=== PATIENT | male | born 1955 | race Caucasian/White ===

== ENCOUNTER → 2018-05-14 | Outpatient (CLI) | payer BC | LOC: M WUC 16:24 | DX: I10 Essential (primary) hypertension (principal); I45.19 Other right bundle-branch block | CPT/HCPCS: 71046 ==

== ENCOUNTER → 2018-05-15 | Outpatient (CLI) | payer BC ==
[2018-05-15 17:07] LABS: BASO % 0.4 % (0.0-1.0); EOS # 0.1 10^3/uL (0.0-0.50); EOS % 1.4 % (0.0-3.0); HEMATOCRIT 47.8 % (42.0-52.0); HEMOGLOBIN 15.9 g/dl (13.5-17.5); IMMATURE GRANULOCYTE % 0.3 % (0-3.0); LYMPH # 1.9 10^3/uL (1.5-4.5); LYMPH % 26.3 % (24.0-44.0); MEAN CORPUSCULAR HEMOGLOBIN 30.8 pg (27.0-33.0); MEAN CORPUSCULAR HGB CONC 33.3 g/dl (32.0-36.5); MEAN CORPUSCULAR VOLUME 92.5 fl (80.0-96.0); MONO # 0.5 10^3/uL (0.0-0.8); MONO % 6.8 % (0.0-5.0); NEUTROPHILS # 4.6 10^3/uL (1.8-7.7); NEUTROPHILS % 64.8 % (36.0-66.0); PLATELET COUNT, AUTOMATED 218 10^3/uL (150-450); RED BLOOD COUNT 5.17 10^6/uL (4.30-6.10); RED CELL DISTRIBUTION WIDTH 12.6 % (11.5-14.5); WHITE BLOOD COUNT 7.1 10^3/uL (4.0-10.0)
[2018-05-15 17:13] LABS: ALBUMIN 4.1 GM/DL (3.2-5.2); ALBUMIN/GLOBULIN RATIO 1.24 (1.00-1.93); ALKALINE PHOSPHATASE 86 U/L (45-117); ALT/SGPT 24 U/L (12-78); ANION GAP 5 MEQ/L (8-16); AST/SGOT 14 U/L (7-37); BILIRUBIN,TOTAL 0.5 MG/DL (0.2-1.0); BLOOD UREA NITROGEN 15 MG/DL (7-18); CALCIUM LEVEL 8.7 MG/DL (8.8-10.2); CARBON DIOXIDE LEVEL 30 MEQ/L (21-32); CHLORIDE LEVEL 104 MEQ/L (98-107); CHOLESTEROL LEVEL 271 MG/DL (<200); CHOLESTEROL RISK RATIO 6.022 (<5); CPK CREATINE PHOSPHOKINASE 125 U/L (39-308); CREATININE FOR GFR 1.37 MG/DL (0.70-1.30); FREE T4 1.06 NG/DL (0.76-1.46); GLOMERULAR FILTRATION RATE 56.2 (>49); GLUCOSE, FASTING 101 MG/DL (70-100); HDL CHOLESTEROL 45 MG/DL (>40); LDL CHOLESTEROL 203 MG/DL (<100); MAGNESIUM LEVEL 2.2 MG/DL (1.8-2.4); MB/CK RELATIVE INDEX 1.04 (< OR =4); NON-HDL-C 226 MG/DL; POTASSIUM SERUM 4.3 MEQ/L (3.5-5.1); SODIUM LEVEL 139 MEQ/L (136-145); TOTAL PROTEIN 7.4 GM/DL (6.4-8.2); TRIGLYCERIDES LEVEL 117 MG/DL (<150); TROPONIN I < 0.02 NG/ML (< 0.10)
[2018-05-15 17:28] LABS: ESTIMATED AVERAGE GLUCOSE 114 MG/DL (60-110); HEMOGLOBIN A1c 5.6 %
== END ==
LOC: M WUC 08:40
DX: I10 Essential (primary) hypertension (principal); I45.19 Other right bundle-branch block
CPT/HCPCS: 82550

== ENCOUNTER 2024-08-30 20:28 | Inpatient (IN) | payer BC, MEDICARE ==
[~2024-08-30] VITALS: Ht 167.6 cm; Wt 90.0 kg
[2024-08-30] MEDS ORDERED: LISI10TA22 PO ×2 (20:57)
[2024-08-30] MEDS ORDERED: METO1TAB32 PO (20:57)
[2024-08-30] MEDS ORDERED: ASPI81TA26 PO (20:57)
[2024-08-30 21:33] LABS: BASO % 0.2 % (0.0-1.0); EOS # 0.1 10^3/uL (0.0-0.5); EOS % 0.3 % (0.0-3.0); HEMATOCRIT 43.2 % (42.0-52.0); HEMOGLOBIN 14.9 g/dl (13.5-17.5); LYMPH # 1.8 10^3/uL (1.5-5.0); LYMPH % 9.6 % (24.0-44.0); MEAN CORPUSCULAR HEMOGLOBIN 32.2 pg (27.0-33.0); MEAN CORPUSCULAR HGB CONC 34.5 g/dl (32.0-36.5); MEAN CORPUSCULAR VOLUME 93.3 fl (80.0-96.0); MONO # 1.3 10^3/uL (0.0-0.8); MONO % 7.1 % (2.0-8.0); NEUTROPHILS # 15.2 10^3/uL (1.5-8.5); NEUTROPHILS % 82.2 % (36.0-66.0); PLATELET COUNT, AUTOMATED 397 10^3/uL (150-450); RED BLOOD COUNT 4.63 10^6/uL (4.30-6.10); WHITE BLOOD COUNT 18.5 10^3/uL (4.0-10.0)
[2024-08-30 22:13] LABS: ALBUMIN 2.4 G/DL (3.2-5.2); BILIRUBIN,DIRECT 3.2 MG/DL (<0.4); BILIRUBIN,TOTAL 4.4 MG/DL (0.3-1.2); CALCIUM LEVEL 8.3 MG/DL (8.3-10.6); CREATININE FOR GFR 2.37 MG/DL (0.70-1.30); GLOMERULAR FILTRATION RATE 29.3 (>49); POTASSIUM SERUM 5.3 MMOL/L (3.5-5.1)
[2024-08-30] MEDS: NS 0.9% IV ONE (22:54)
[2024-08-30] MEDS: CEFEPIME HCL 2 GM in DEXTROSE 5% (D5W) ADV/MINI-BAG 50 ML IV ONE (22:54)
[2024-08-30] MEDS: [UNRECOGNIZED DRUG - OTHER] IV ONE (22:54)
[2024-08-30 23:32] LABS: INR 1.23; PARTIAL THROMBOPLASTIN TIME 30.5 SECONDS (24.8-34.2); PROTHROMBIN TIME 15.8 SECONDS (12.5-14.5)
[2024-08-31] MEDS ORDERED: HOME MED LIST COMPLETE! XX SCH (01:45)
[2024-08-31] MEDS: FUROSEMIDE 100MG/10ML VIAL IV ONE (03:22)
[2024-08-31 04:01] LABS: HEMOGLOBIN A1c 4.7 % (4.0-6.0)
[2024-08-31 04:10] LABS: ETHYL ALCOHOL (ETHANOL) < 0.003 % (0.000-0.010)
[2024-08-31 04:18] LABS: KETONE, URINE AUTO RFX NEGATIVE (NEGATIVE); LEUKOCYTE ESTERASE UR AUTO RFX NEGATIVE (NEGATIVE); MUCUS, URINE RFX SMALL (NEGATIVE); NITRITE, URINE AUTO RFX NEGATIVE (NEGATIVE); RBC, URINE AUTO RFX 1 /HPF (0-3); SQUAM EPITHELIAL CELL UR AURFX 1 /HPF (0-6); WBC, URINE AUTO RFX 2 /HPF (0-3)
[2024-08-31 04:26] LABS: OSMOLALITY URINE 493 MOSM/KG (50-1400)
[2024-08-31 04:36] LABS: SODIUM,RANDOM URINE 42 MMOL/L
[2024-08-31 04:38] LABS: AMPHETAMINES LEVEL URINE NEGATIVE (NEGATIVE)
[2024-08-31 04:39] LABS: BARBITURATES URINE NEGATIVE (NEGATIVE); BENZODIAZEPINES URINE NEGATIVE (NEGATIVE); CANNABINOIDS URINE NEGATIVE (NEGATIVE); COCAINE METABOLITE URINE NEGATIVE (NEGATIVE); METHADONE URINE NEGATIVE (NEGATIVE); OPIATES URINE NEGATIVE (NEGATIVE); PHENCYCLIDINE URINE NEGATIVE (NEGATIVE)
[2024-08-31 05:59] LABS: HEPATITIS B SURFACE ANTIGEN NEGATIVE (NEGATIVE)
[2024-08-31 06:19] LABS: HEPATITIS B CORE ANTIBODY IGM NEGATIVE (NEGATIVE); HEPATITIS C VIRUS ABY INDEX 0.06 INDEX (<0.8)
[2024-08-31 06:28] LABS: CHOLESTEROL LEVEL 169 MG/DL (<200); CHOLESTEROL RISK RATIO 9.18 (<5); FERRITIN 1264.1 NG/ML (10.5-307.3); HDL CHOLESTEROL 18.4 MG/DL (>40); NON-HDL-C 150.6 MG/DL; TRIGLYCERIDES LEVEL 93 MG/DL (<150)
[2024-08-31] MEDS: cefTRIAXone SOD 1 GM in DEXTROSE 5% (D5W) ADV/MINI-BAG 50 ML IV SCH (06:38)
[2024-08-31 07:09] LABS: HEMATOCRIT 44.2 % (42.0-52.0); MEAN CORPUSCULAR HEMOGLOBIN 32.9 pg (27.0-33.0); MEAN CORPUSCULAR HGB CONC 33.9 g/dl (32.0-36.5); MEAN CORPUSCULAR VOLUME 96.9 fl (80.0-96.0); PLATELET COUNT, AUTOMATED 309 10^3/uL (150-450); RED BLOOD COUNT 4.56 10^6/uL (4.30-6.10); WHITE BLOOD COUNT 17.8 10^3/uL (4.0-10.0)
[2024-08-31 07:21] LABS: ALBUMIN 2.2 G/DL (3.2-5.2); ALKALINE PHOSPHATASE 392 U/L (40-129); ALT/SGPT 63 U/L (7.0-40); AST/SGOT 138 U/L (<34); BILIRUBIN,TOTAL 4.4 MG/DL (0.3-1.2); BLOOD UREA NITROGEN 55 MG/DL (9-23); CALCIUM LEVEL 8.1 MG/DL (8.3-10.6); CARBON DIOXIDE LEVEL 19 MMOL/L (20-31); CHLORIDE LEVEL 103 MMOL/L (98-107); CREATININE FOR GFR 2.19 MG/DL (0.70-1.30); GLOMERULAR FILTRATION RATE 32.1 (>49); GLUCOSE, FASTING 101 MG/DL (74-106); POTASSIUM SERUM 5.1 MMOL/L (3.5-5.1); SODIUM LEVEL 134 MMOL/L (136-145); TOTAL PROTEIN 6.7 G/DL (5.7-8.2)
[2024-08-31 07:38] LABS: CA19-9 TUMOR MARKER,CARBOHYDRA < 1.2 U/ML (<35.0)
[2024-08-31] MEDS: ASPIRIN 81MG ENTERIC TABLET PO SCH (08:21)
[2024-08-31] MEDS: AZITHROMYCIN 250MG TABLET PO SCH (09:00)
[2024-08-31] MEDS ORDERED: METOPROLOL SUCC *XL* 25MG TAB (TopROL *XL*) PO SCH (09:00)
[2024-08-31] MEDS ORDERED: FUROSEMIDE 40MG/4ML VIAL IV SCH (09:00)
[2024-08-31] MEDS ORDERED: SPIRONOLACTONE 50 MG TAB PO SCH (09:00)
[2024-08-31] MEDS: MIDODRINE 5 MG TAB PO SCH (11:49)
[2024-08-31 11:55] LABS: PROCALCITONIN 1.36 ng/ml
[2024-08-31] MEDS: OCTREOTIDE ACETATE 100MCG/ML VIAL **SC ADMINISTRATION ONLY SC SCH (12:00)
[2024-08-31 13:15] LABS: PH BODY FLUID 7.675 UNITS (NOT ESTABLISHED); SOURCE, BODY FLUID pH ASCITES
[2024-08-31 13:30] LABS: SOURCE, BODY FLUID GLUCOSE ASCITES; SOURCE, BODY FLUID TRIG ASCITES; TRIGLYCERIDE, BODY FLUID 38 MG/DL (NOT ESTABLISHED)
[2024-08-31 13:31] LABS: AMYLASE, BODY FLUID < 20 U/L (NOT ESTABLISHED); LDH, BODY FLUID 126 U/L (NOT ESTABLISHED); SOURCE, BODY FLUID AMYLASE ASCITES; SOURCE, BODY FLUID LDH ASCITES
[2024-08-31 13:32] LABS: APPEARANCE, BODY FLUID CLEAR (CLEAR); ASCITES FL COLOR YELLOW (COLORLESS); CHOLESTEROL, BODY FLUID 41 MG/DL (NOT ESTABLISHED); SOURCE, BODY FLUID ASCITES; SOURCE, BODY FLUID CHOL ASCITES
[2024-08-31 13:52] LABS: SOURCE, BODY FLUID ALBUMIN ASCITES
[2024-08-31 13:57] LABS: SOURCE, BODY FLUID TOT PROTEIN ASCITES; TOTAL PROTEIN, BODY FLUID 2.1 G/DL (NOT ESTABLISHED)
[2024-08-31 15:30] VITALS: BP 110/64; TEMP 97; O2SAT 96
[2024-08-31 16:27] VITALS: BP 108/66; TEMP 97.3; O2SAT 97
[2024-08-31 19:36] VITALS: BP 109/66; TEMP 97.3; O2SAT 91
[2024-08-31] MEDS: cefTRIAXone SOD 2 GM in DEXTROSE 5% (D5W) ADV/MINI-BAG 50 ML IV SCH (21:26)
[2024-09-01] VITALS (7 sets, daily range): BP systolic 98–110; BP diastolic 65–88; TEMP 97–97.9; O2SAT 89–98
[2024-09-01] MEDS ORDERED: cefTRIAXone SOD 2 GM in DEXTROSE 5% (D5W) ADV/MINI-BAG 50 ML IV SCH (06:00)
[2024-09-01 07:49] LABS: BASO % 0.2 % (0.0-1.0); EOS # 0.1 10^3/uL (0.0-0.5); EOS % 0.3 % (0.0-3.0); HEMOGLOBIN 15.4 g/dl (13.5-17.5); LYMPH # 1.6 10^3/uL (1.5-5.0); LYMPH % 8.6 % (24.0-44.0); MEAN CORPUSCULAR HEMOGLOBIN 32.6 pg (27.0-33.0); MEAN CORPUSCULAR HGB CONC 34.2 g/dl (32.0-36.5); MEAN CORPUSCULAR VOLUME 95.1 fl (80.0-96.0); MONO # 1.4 10^3/uL (0.0-0.8); MONO % 7.7 % (2.0-8.0); NEUTROPHILS # 14.9 10^3/uL (1.5-8.5); NEUTROPHILS % 82.6 % (36.0-66.0); PLATELET COUNT, AUTOMATED 343 10^3/uL (150-450); RED BLOOD COUNT 4.73 10^6/uL (4.30-6.10); WHITE BLOOD COUNT 18.1 10^3/uL (4.0-10.0)
[2024-09-01 08:20] LABS: ALBUMIN 2.1 G/DL (3.2-5.2); BILIRUBIN,TOTAL 3.1 MG/DL (0.3-1.2); CREATININE FOR GFR 2.11 MG/DL (0.70-1.30); GLOMERULAR FILTRATION RATE 33.5 (>49); POTASSIUM SERUM 5.8 MMOL/L (3.5-5.1); TOTAL PROTEIN 6.2 G/DL (5.7-8.2)
[2024-09-01] MEDS: PIPERACILLIN/TAZOBACTAM SOD 3.375 GM in DEXTROSE 5% (D5W) ADV/MINI-BAG 50 ML IV SCH (10:00)
[2024-09-01] MEDS: PATIROMER SORBITEX CALCIUM 8.4 GM POWDER PACKET (VELTASSA) PO ONE (18:08)
[2024-09-02] VITALS (12 sets, daily range): BP systolic 91–116; BP diastolic 54–69; TEMP 96.8–97.3; O2SAT 94–97
[2024-09-02 07:13] LABS: BASO # 0.1 10^3/uL (0.0-0.2); BASO % 0.4 % (0.0-1.0); EOS # 0.1 10^3/uL (0.0-0.5); EOS % 0.6 % (0.0-3.0); HEMATOCRIT 41.9 % (42.0-52.0); HEMOGLOBIN 14.3 g/dl (13.5-17.5); LYMPH % 10.6 % (24.0-44.0); MEAN CORPUSCULAR HEMOGLOBIN 32.6 pg (27.0-33.0); MEAN CORPUSCULAR HGB CONC 34.1 g/dl (32.0-36.5); MEAN CORPUSCULAR VOLUME 95.7 fl (80.0-96.0); MONO # 1.5 10^3/uL (0.0-0.8); MONO % 7.8 % (2.0-8.0); NEUTROPHILS # 14.9 10^3/uL (1.5-8.5); NEUTROPHILS % 79.8 % (36.0-66.0); PLATELET COUNT, AUTOMATED 302 10^3/uL (150-450); RED BLOOD COUNT 4.38 10^6/uL (4.30-6.10); WHITE BLOOD COUNT 18.7 10^3/uL (4.0-10.0)
[2024-09-02 07:38] LABS: ALBUMIN 2.3 G/DL (3.2-5.2); BILIRUBIN,TOTAL 2.9 MG/DL (0.3-1.2); C REACTIVE PROTEIN QUANTITATIV 8.76 MG/DL (<1.0); CALCIUM LEVEL 7.9 MG/DL (8.3-10.6); CREATININE FOR GFR 2.35 MG/DL (0.70-1.30); GLOMERULAR FILTRATION RATE 29.6 (>49); POTASSIUM SERUM 5.4 MMOL/L (3.5-5.1); TOTAL PROTEIN 5.9 G/DL (5.7-8.2)
[2024-09-02] MEDS ORDERED: cefTRIAXone SOD 2 GM in DEXTROSE 5% (D5W) ADV/MINI-BAG 50 ML IV SCH (12:00)
[2024-09-02] MEDS: PATIROMER SORBITEX CALCIUM 8.4 GM POWDER PACKET (VELTASSA) PO SCH (12:51)
[2024-09-02] MEDS: metroNIDAZOLE (FLAGYL) 500MG TABLET PO SCH (14:24)
[2024-09-02] MEDS: cefTRIAXone SOD 2 GM in DEXTROSE 5% (D5W) ADV/MINI-BAG 50 ML IV SCH (17:09)
[2024-09-02] MEDS: PANTOPRAZOLE 40MG TAB (PROTONIX) PO SCH (21:11)
[2024-09-02] MEDS: HEPARIN SOD (PORCINE) 5000UNITS/ML 1ML VIAL/SYRINGE SC SCH (21:11)
[2024-09-03] VITALS (8 sets, daily range): BP systolic 94–119; BP diastolic 53–84; TEMP 97.2–97.7; O2SAT 94–97
[2024-09-03 05:23] LABS: BASO # 0.1 10^3/uL (0.0-0.2); BASO % 0.4 % (0.0-1.0); EOS # 0.2 10^3/uL (0.0-0.5); EOS % 0.9 % (0.0-3.0); HEMATOCRIT 39.3 % (42.0-52.0); HEMOGLOBIN 13.3 g/dl (13.5-17.5); LYMPH # 2.1 10^3/uL (1.5-5.0); LYMPH % 10.5 % (24.0-44.0); MEAN CORPUSCULAR HEMOGLOBIN 31.9 pg (27.0-33.0); MEAN CORPUSCULAR HGB CONC 33.8 g/dl (32.0-36.5); MEAN CORPUSCULAR VOLUME 94.2 fl (80.0-96.0); MONO # 1.6 10^3/uL (0.0-0.8); MONO % 8.1 % (2.0-8.0); NEUTROPHILS # 15.4 10^3/uL (1.5-8.5); NEUTROPHILS % 79.2 % (36.0-66.0); PLATELET COUNT, AUTOMATED 284 10^3/uL (150-450); RED BLOOD COUNT 4.17 10^6/uL (4.30-6.10); WHITE BLOOD COUNT 19.5 10^3/uL (4.0-10.0)
[2024-09-03 05:46] LABS: CALCIUM LEVEL 7.7 MG/DL (8.3-10.6); CREATININE FOR GFR 2.39 MG/DL (0.70-1.30); MAGNESIUM LEVEL 2.1 MG/DL (1.8-2.4)
[2024-09-04 03:59] VITALS: BP 91/63; TEMP 97.7; O2SAT 94
[2024-09-04 07:21] LABS: BASO # 0.1 10^3/uL (0.0-0.2); BASO % 0.4 % (0.0-1.0); EOS # 0.1 10^3/uL (0.0-0.5); EOS % 0.5 % (0.0-3.0); HEMATOCRIT 40.7 % (42.0-52.0); HEMOGLOBIN 14.1 g/dl (13.5-17.5); LYMPH # 1.7 10^3/uL (1.5-5.0); LYMPH % 8.7 % (24.0-44.0); MEAN CORPUSCULAR HEMOGLOBIN 32.8 pg (27.0-33.0); MEAN CORPUSCULAR HGB CONC 34.6 g/dl (32.0-36.5); MEAN CORPUSCULAR VOLUME 94.7 fl (80.0-96.0); MONO # 1.5 10^3/uL (0.0-0.8); MONO % 7.5 % (2.0-8.0); NEUTROPHILS % 82.1 % (36.0-66.0); PLATELET COUNT, AUTOMATED 268 10^3/uL (150-450); WHITE BLOOD COUNT 19.4 10^3/uL (4.0-10.0)
[2024-09-04 07:50] LABS: CALCIUM LEVEL 7.7 MG/DL (8.3-10.6); CREATININE FOR GFR 2.01 MG/DL (0.70-1.30); GLOMERULAR FILTRATION RATE 35.5 (>49); MAGNESIUM LEVEL 2.1 MG/DL (1.8-2.4); POTASSIUM SERUM 4.9 MMOL/L (3.5-5.1)
[2024-09-04 12:00] VITALS: BP 109/70; TEMP 98.1; O2SAT 95
[2024-09-04] MEDS ORDERED: LIDOCAINE 1% MDV 20ML VIAL As Ordered ONE (13:49)
[2024-09-04 15:41] VITALS: BP 107/69; TEMP 97.3; O2SAT 96
[2024-09-04 17:47] LABS: ANTI-SMOOTH MUSCLE ANTIBODY 32 U (<20)
[2024-09-04 18:09] VITALS: BP 108/69; TEMP 97.5
[2024-09-04 19:29] VITALS: BP 108/70; TEMP 97.5; O2SAT 93
[2024-09-05 03:55] VITALS: BP 102/67; TEMP 97.3; O2SAT 96
[2024-09-05] MEDS: ONDANSETRON 4MG 2ML VIAL IV PRN (04:08)
[2024-09-05] MEDS: traMADol 50 MG TAB PO ONE (04:49)
[2024-09-05 07:37] LABS: CREATININE FOR GFR 1.9 MG/DL (0.70-1.30); GLOMERULAR FILTRATION RATE 37.8 (>49); MAGNESIUM LEVEL 2.1 MG/DL (1.8-2.4); POTASSIUM SERUM 4.8 MMOL/L (3.5-5.1)
[2024-09-05 08:35] LABS: LIVER-KIDNEY MICROSOMAL ABY <= 20.0 U (<=20.0)
[2024-09-05 12:00] VITALS: BP 116/70; TEMP 97.8; O2SAT 98
[2024-09-05 13:38] VITALS: BP 116/72; TEMP 98.7; O2SAT 97
[2024-09-05] MEDS: CIPROFLOXACIN 500MG TABLET PO SCH (17:16)
[2024-09-05 17:20] VITALS: BP 111/75; TEMP 97.2
[2024-09-05 19:37] VITALS: BP 112/75; TEMP 97.2
[2024-09-05 21:32] VITALS: BP 102/63; TEMP 97
[2024-09-06 05:17] VITALS: BP 119/75; TEMP 97
[2024-09-06 06:52] LABS: CALCIUM LEVEL 8.1 MG/DL (8.3-10.6); CREATININE FOR GFR 1.99 MG/DL (0.70-1.30); GLOMERULAR FILTRATION RATE 35.9 (>49)
[2024-09-06] MEDS ORDERED: CIPR500T39 PO (10:35)
[2024-09-06] MEDS ORDERED: MIDO5TA PO (10:35)
[2024-09-06] MEDS ORDERED: PANT40TA29 PO (10:35)
[2024-09-06] MEDS ORDERED: VELT1POW PO (10:35)
[2024-09-06] MEDS ORDERED: SENO8.6T10 PO (10:52)
[2024-09-06 11:26] VITALS: BP 117/76; TEMP 97; O2SAT 95
[2024-09-06 12:00] VITALS: BP 117/76; TEMP 97.6; O2SAT 96
[2024-09-06 12:13] VITALS: BP 111/74
[2024-09-06] MEDS ORDERED: ONDA-282 PO (16:17)
[2024-09-06] MEDS ORDERED: CIPROFLOXACIN 500MG TABLET PO SCH (18:00)
[2024-09-06 22:23] LABS: ANA SCREEN, IFA Negative (Negative)
[2024-09-07] MEDS ORDERED: CIPROFLOXACIN 500MG TABLET PO SCH (18:00)
[2024-09-08 01:07] LABS: ANTI-MITOCHONDRIAL ANTIBODY Negative (Negative)
== END 2024-09-06 15:15 | disposition home health service (06) | DRG 436 ==
LOC: M ED 20:28 → M ED INP 08-31 02:01 → M MS5PR 08-31 15:30
PROVIDERS: ADMIT Student in an Organized Health Care Education/Training Program; ATTEND Student in an Organized Health Care Education/Training Program
PROC: 0D9W3ZZ Drainage of Peritoneum, Percutaneous Approach (ICD-10-PCS; principal; 2024-09-04 12:00)
PROC: 0FB23ZX Excision of Left Lobe Liver, Percutaneous Approach, Diagnostic (ICD-10-PCS; 2024-09-04 12:00)
DX: C22.1 Intrahepatic bile duct carcinoma (principal); N17.9 Acute kidney failure, unspecified; J90 Pleural effusion, not elsewhere classified; E87.20 Acidosis, unspecified; K76.6 Portal hypertension; E87.1 Hypo-osmolality and hyponatremia; J98.11 Atelectasis; R18.8 Other ascites; K74.60 Unspecified cirrhosis of liver; Z79.82 Long term (current) use of aspirin; R94.5 Abnormal results of liver function studies; E87.5 Hyperkalemia; Z95.0 Presence of cardiac pacemaker; R74.01 Elevation of levels of liver transaminase levels; E87.70 Fluid overload, unspecified; E88.09 Other disorders of plasma-protein metabolism, not elsewhere classified; N43.3 Hydrocele, unspecified; E83.51 Hypocalcemia; I10 Essential (primary) hypertension; Z79.899 Other long term (current) drug therapy; D64.9 Anemia, unspecified

== ENCOUNTER → 2024-09-11 | Outpatient (CLI) | payer BC ==
[~2024-09-11] MED LIST: ASPI81TA26 PO; CIPR500T39 PO; LISI10TA22 PO; METO1TAB32 PO; MIDO5TA PO; ONDA-282 PO; PANT40TA29 PO; SENO8.6T10 PO; VELT1POW PO
[2024-09-11 13:35] VITALS: TEMP 96.7
[2024-09-11 14:37] VITALS: BP 113/72; O2SAT 96
== END ==
LOC: M IRPRO 13:27
PROVIDERS: ATTEND Student in an Organized Health Care Education/Training Program
DX: R18.8 Other ascites (principal)

== ENCOUNTER → 2024-09-18 | Outpatient (CLI) | payer MEDICARE ==
[~2024-09-18] MED LIST changes: +AMBI5TAB PO
[2024-09-18 11:15] VITALS: TEMP 97.8
[2024-09-18 12:10] VITALS: BP 93/64; O2SAT 97
== END ==
LOC: M IRPRO 11:06
PROVIDERS: ATTEND Internal Medicine Medical Oncology
DX: R18.8 Other ascites (principal)